=== PATIENT | male | born 1955 | race Caucasian/White ===

== ENCOUNTER 2023-09-07 14:02 | Emergency (ER) | payer OTHER ==
[~2023-09-07] VITALS: Ht 182.9 cm; Wt 70.3 kg
[2023-09-07 14:04] VITALS: BP 126/68; PULSE 96; RESP 17; TEMP 98.1; O2SAT 98
[2023-09-07] MEDS ORDERED: NACL 0.9% 1,000 ML IV ONE (14:25)
[2023-09-07] MEDS ORDERED: MORPHINE SULFATE 4 MG/ML SYR IVP ONE (14:25)
[2023-09-07] MEDS ORDERED: METO-747 PO (14:43)
[2023-09-07] MEDS ORDERED: ZOLP5TAB1 PO (14:43)
[2023-09-07] MEDS ORDERED: BACL10TA4 PO (14:43)
[2023-09-07] MEDS ORDERED: [UNRECOGNIZED DRUG - CODE] PO (14:43)
[2023-09-07] MEDS ORDERED: [UNRECOGNIZED DRUG - CODE] PO (14:43)
[2023-09-07 15:08] LABS: BASOPHILS % (AUTO) 0.6 % (0.0-2.0); EOSINOPHILS % (AUTO) 0.5 % (0.0-4.0); HEMATOCRIT 41.1 % (36-52); HEMOGLOBIN 14.2 g/dL (12.0-18.0); LYMPHOCYTES # (AUTO) 1.6 K/uL (2.0-11.5); LYMPHOCYTES % (AUTO) 24.3 % (20.5-51.1); MEAN CORPUSCULAR HEMOGLOBIN 33 pg (27-31); MEAN CORPUSCULAR HGB CONC 35 g/dL (33-37); MEAN CORPUSCULAR VOLUME 94.9 fL (80-94); MONOCYTES # (AUTO) 0.3 K/uL (0.8-1.0); MONOCYTES % (AUTO) 5.2 % (1.7-9.3); NEUTROPHILS # (AUTO) 4.5 K/uL (1.8-7.7); NEUTROPHILS % (AUTO) 69.4 % (42.2-75.2); PLATELET COUNT (AUTO) 222 K/uL (140-450); RED BLOOD CELL COUNT(AUTO) 4.34 MIL/uL (4.20-6.10); RED CELL DISTRIBUTION WIDTH 16.1 % (11.6-13.7); WHITE BLOOD COUNT (AUTO) 6.5 K/uL (4.8-10.8)
[2023-09-07 15:27] LABS: ANION GAP 18.8 (8-16); CALCIUM 8.6 mg/dL (8.5-10.1); CARBON DIOXIDE 19.9 mmol/L (21-32); CREATININE 1.1 mg/dL (0.6-1.3)
[2023-09-07 15:30] LABS: POTASSIUM 2.7 mmol/L (3.5-5.1)
[2023-09-07] MEDS ORDERED: POTASSIUM CHLORIDE 10 MEQ TABER PO ONE (15:35)
[2023-09-07] MEDS ORDERED: KETOROLAC 30 MG/ML VIAL IVP ONE (16:10)
[2023-09-07] MEDS ORDERED: MORPHINE SULFATE 2 MG/ML SYR IVP PRN (16:10)
[2023-09-07 18:16] LABS: APPEARANCE,URINE CLEAR (CLEAR); BILIRUBIN,URINE 3+ (NEGATIVE); BLOOD, URINE NEGATIVE (NEGATIVE); COLOR,URINE YELLOW (YELLOW); LEUKOCYTE ESTERASE ,URINE NEGATIVE (NEGATIVE); NITRITE, URINE POSITIVE (NEGATIVE); PH,URINE 5.5 (5.0-9.0); PROTEIN,URINE 1+ (NEGATIVE); UGLUCOSE NEGATIVE (NEGATIVE)
[2023-09-07 18:22] LABS: ICTOTEST NEGATIVE (NEGATIVE)
[2023-09-07 18:23] LABS: BACTERIA,URINE FEW /HPF (None Seen); RBC,URINE 0-5 /HPF (0-5); SQUAMOUS EPITHELIAL CELL,UR 0-3 (FEW) /LPF (0-3 (FEW)); WBC,URINE 0-5 /HPF (0-5)
[2023-09-07 18:26] VITALS: TEMP 98.1
[2023-09-07 19:42] VITALS: BP 128/70; PULSE 94; RESP 17; O2SAT 98
== END 2023-09-07 19:40 | disposition short-term general hospital (02) ==
LOC: MED 14:02
DX: S32.031A Stable burst fracture of third lumbar vertebra, initial encounter for closed fracture (principal); M25.551 Pain in right hip; I48.91 Unspecified atrial fibrillation; Z79.899 Other long term (current) drug therapy; W18.39XA Other fall on same level, initial encounter; Y92.009 Unspecified place in unspecified non-institutional (private) residence as the place of occurrence of the external cause; Y93.89 Activity, other specified; Y99.8 Other external cause status
CPT/HCPCS: 36415; 70450; 72131; 72192; 73552; 80048; 81001; 84484; 85025; 93005; 96361; 96374; 96375; 96376; 99291; J1885; J2270; J7030; 99285